=== PATIENT | female | born 1950 | race African-American/Black ===

== ENCOUNTER 2019-02-21 08:50 | Day surgery (SDC) | payer OTHER, BC ==
[2019-02-17 13:55] VITALS: BMI 36.2
[2019-02-21] MEDS ORDERED: GLUCAGON 1 MG KIT ONE (10:13)
[2019-02-21 10:54] VITALS: TEMP 97.7
[2019-02-21 11:32] VITALS: BP 137/66; PULSE 63
--- NOTE | 2019-02-23 15:21 | PATH ---
Surgical Pathology Report Patient Name: YFN MCQUEEN [employer] Rec. #: [id number] /Age/Gender: 1950 (Age: 68) / F Account: [id number] Location: [facility] Taken: 02/21/2019 Received: 02/21/2019 Reported: 02/23/2019 Physicians: Bruno Peacock M.D. Specimen(s) Received BX ANTRUM Clinical History Gastritis, duodenal AVMS, colon diverticuli Final Diagnosis ANTRUM, BIOPSY: MILD CHRONIC GASTRITIS. IMMUNOSTAIN IS NEGATIVE FOR H. PYLORI ORGANISMS. Electronically Signed Lucy Lozano M.D. Gross Description Received in formalin, labeled "antrum" are two pieces of light woods tissue measuring 0.3 cm and 0.4 cm in greatest dimension. Entirely submitted in one cassette. AE/02/21/2019 ebram/02/21/2019
== END 2019-02-21 11:35 | disposition home or self-care (01) ==
LOC: FASU-ENDO 08:50
PROVIDERS: ATTEND Internal Medicine Gastroenterology
PROC: 0DB98ZX Excision of Duodenum, Via Natural or Artificial Opening Endoscopic, Diagnostic (ICD-10-PCS; 2019-02-21)
PROC: 0DB68ZX Excision of Stomach, Via Natural or Artificial Opening Endoscopic, Diagnostic (ICD-10-PCS; 2019-02-21)
PROC: 0DJD8ZZ Inspection of Lower Intestinal Tract, Via Natural or Artificial Opening Endoscopic (ICD-10-PCS; principal; 2019-02-21 10:00)
DX: D50.9 Iron deficiency anemia, unspecified (principal); K29.50 Unspecified chronic gastritis without bleeding; K55.20 Angiodysplasia of colon without hemorrhage; K57.30 Diverticulosis of large intestine without perforation or abscess without bleeding
CPT/HCPCS: 88305-TC; 88342-TC

== ENCOUNTER 2020-11-08 04:17 | Day surgery (SDC) | payer OTHER, BC ==
[2020-11-07 15:32] VITALS: BMI 33.6
[2020-11-08] MEDS ORDERED: ACETAMINOPHEN 325 MG TABLET (FP) PO PRN (07:13)
[2020-11-08] MEDS ORDERED: BSS (NA/CA/MG/K) BALANCED SALT SOLUTION OPHTH SOLN 15 ML BOTTLE ONE (07:16)
[2020-11-08] MEDS ORDERED: POVIDONE-IODINE 5% OPHTHALMIC PREP 30 ML SOLUTION ONE (07:16)
[2020-11-08] MEDS ORDERED: TETRACAINE 0.5% OPHTH SOLN 2 ML BOTTLE ONE (07:16)
[2020-11-08] MEDS ORDERED: TOBRAMYCIN/DEXAMETHASONE OPHTH. OINTMENT 1 TUBE ONE (07:16)
[2020-11-08] MEDS ORDERED: LIDOCAINE HCL/PF 1% SDV 5ML VIAL ONE (07:16)
[2020-11-08] MEDS ORDERED: CHONDROITIN SU A/HYALUR SOD 1 KIT ONE (07:17)
[2020-11-08] MEDS ORDERED: TROPICAMIDE 1% OPHTH SOLN 15 ML BOTTLE ONE (07:18)
[2020-11-08] MEDS: KETOROLAC TROMETHAMINE 0.5% EYE DROP 1 DROP DROPS OP SCH ×3 (08:14→09:01)
[2020-11-08] MEDS: CIPROFLOXACIN HCL 0.3% OPHTH 2.5ML BOTTLE OP SCH ×3 (08:14→09:00)
[2020-11-08] MEDS: PHENYLEPHRINE 2.5% OPHTH SOLN 15 ML BOTTLE OP SCH ×3 (08:15→09:01)
[2020-11-08] MEDS: TROPICAMIDE 1% OPHTH SOLN 15 ML BOTTLE OP SCH ×3 (08:15→09:01)
[2020-11-08] MEDS ORDERED: MIDAZOLAM HCL 2 MG/2 ML SINGLE DOSE VIAL ONE (08:46)
[2020-11-08] MEDS ORDERED: EPINEPHrine/PF 1 MG/1 ML (1:1,000) AMPULE ONE (09:29)
[2020-11-08] MEDS ORDERED: TETRACAINE 0.5% OPHTH SOLN 2 ML BOTTLE TP ONE (09:33)
[2020-11-08] MEDS ORDERED: POVIDONE-IODINE 5% OPHTHALMIC PREP 30 ML SOLUTION OD ONE (09:34)
[2020-11-08] MEDS ORDERED: EPINEPHrine/PF 1 MG/1 ML (1:1,000) AMPULE SQ ONE ×2 (09:37→09:43)
[2020-11-08] MEDS ORDERED: BSS (NA/CA/MG/K) BALANCED SALT SOLUTION OPHTH SOLN 15 ML BOTTLE OD ONE (09:37)
[2020-11-08] MEDS ORDERED: LIDOCAINE HCL 1% PRESERVATIVE FREE - 30ML VIAL IO ONE (09:37)
[2020-11-08] MEDS ORDERED: CHONDROITIN SU A/HYALUR SOD 1 KIT IO ONE (09:37)
[2020-11-08] MEDS ORDERED: TOBRAMYCIN/DEXAMETHASONE OPHTH. OINTMENT 1 TUBE TP ONE (09:52)
[2020-11-08 11:10] VITALS: TEMP 97.5
[2020-11-08 11:21] VITALS: BP 118/62; PULSE 72
== END 2020-11-08 11:35 | disposition home or self-care (01) ==
LOC: JASU-SURG 04:17
PROVIDERS: ATTEND Ophthalmology
PROC: 08RJ3JZ Replacement of Right Lens with Synthetic Substitute, Percutaneous Approach (ICD-10-PCS; principal; 2020-11-08 09:30)
DX: H26.9 Unspecified cataract (principal)